=== PATIENT | male | born 1995 | race Caucasian/White ===

== ENCOUNTER 2018-07-06 19:45 | Emergency (ER) | payer BC, SELFPAY ==
[2018-07-06 19:57] VITALS: BP 159/87; PULSE 83; RESP 18; TEMP 36.6; O2SAT 97
[2018-07-06] MEDS: Normal Saline 1,000 ML 1000 ML IV (20:32)
[2018-07-06 20:42] LABS: Absolute Basophil Count 0.01 k/cumm (0.0-0.2); Absolute Eosinophil Count 0.05 k/cumm (0.0-0.7); Absolute Lymphocyte Count 1.55 k/cumm (1.2-3.4); Absolute Monocyte Count 0.65 k/cumm (0.11-0.7); Basophils % 0.2; Eosinophils % 1.2; HCT 43.3 % (40.0-50.0); Lymphocytes % 37.5; Mean Corp. HGB Concentration 34.6 g/dL (32.0-36.0); Mean Corpuscular Hemoglobin 27.5 pg (27.0-33.0); Mean Corpuscular Volume 79.3 fL (80-95); Mean Platelet Volume 9.8 fL (8.0-11.0); Monocytes % 15.7; Neutrophils % 45.4; Platelet Count 212 x1000/uL (130-400); RBC 5.46 m/cumm (4.50-6.00); White Blood Cell Count 4.13 k/cumm (4.4-10.8)
[2018-07-06 20:43] LABS: Absolute Neutrophil Count 1.88 k/cumm (1.2-6.7)
[2018-07-06 20:51] LABS: ALT 32 U/L (12-78); AST 27 U/L (15-37); Albumin 3.4 g/dL (3.4-5.0); Alkaline Phosphatase 77 U/L (46-116); BUN 14 mg/dL (7-18); Bilirubin, Total 0.3 mg/dL (0.2-1.0); CREATININE 0.74 mg/dL (0.70-1.30); Calcium 8.4 mg/dL (8.5-10.1); Chloride 103 mmol/L (98-107); Glucose 103 mg/dL (70-100); Lipase 67 U/L (73-393); Potassium 4.2 mmol/L (3.5-5.1); Sodium 138 mmol/L (136-145); Total Protein 7.2 g/dL (6.4-8.2)
--- NOTE | 2018-07-06 21:21 | W.ED.GENAD ---
Discharge Plan Disposition Patient Disposition: HOME Condition: Stable Discharge Details Chief Complaint: Nausea/Vomit/Diar Clinical Impression: Diarrhea Primary Care Provider: Beatrice More ED Provider: Abrahan Del Rosario Home Meds and New Rx's Prescriptions: Discontinued sulfamethoxazole-trimethoprim 1 TAB tablet 1 ea PO BID Qty: 20 RF: 0 Discharge Instructions Instructions: Acute Diarrhea (ED) Additional Instructions: He may continue to use [id number] Imodium just take as directed on packaging. Stay away from extremely sugary drinks but stay well-hydrated with plenty of water or half dilute Gatorade. If your symptoms continue over the next week please follow-up with your primary care provider for reassessment. Stand Alone Forms: Work Release Referrals: Beatrice More [Primary Care Provider] - (As needed for reassessment or if not improving over the next week) Discharge Data Discharge Date/Time-TO BE ENTERED AT DEPARTURE: 07/06/18 21:37 Medical Decision Making Patient presenting to the emergency department chief complaint of diarrhea for 4 days with intermittent fever. Patient denies any bloody or mucus noted with diarrhea and states mostly watery bowel movements. Patient denies any other sick contacts, denies recent antibiotic use, denies any pain or discomfort at this time. Patient does state some crampy abdominal pain just before bowel movement occurs. Physical exam is unremarkable with completely soft nontender abdomen normal active bowel sounds no other exam findings noted. I do not feel that CT imaging is required at this time given nonsurgical abdomen and otherwise reassuring assessment and review of vital signs. given patient stating persistent diarrhea do feel that checking labs is warranted. Pending labs patient given IV fluids. Patient labs were reviewed and show nondiagnostic findings with no worrisome leukocytosis of concern. Patient reassessed and remained stable. Patient was unable to provide stool specimen in the emergency department so given outpatient orders but more concern for viral etiology of diarrhea. Return precautions discussed. After discussion of diagnosis and plan of care patient has no further needs, questions, or concerns and states clear understanding to return to the emergency department for any worsening symptoms. HPI General Mode of arrival: ambulatory. Date/Time Provider Initiated Documentation: 07/06/18 20:11. Limitations to Documentation: no limitations. Information obtained by: patient and RN notes reviewed. History of Present Illness 22 year old M presents to the emergency department with the chief complaint of Diarrhea, fever, Quality is described as other (Denies pain), Patient started experiencing this day(s) (4) No exacerbating factors reported . Patient did receive the following treatments prior to arrival, other (1 dose of Imodium) Related Data Allergies Allergy/AdvReac Type Severity Reaction Status Date / Time house dust mite AdvReac Unverified 07/25/17 16:12 pine nut AdvReac Unverified 07/25/17 16:12 General Stated Complaint: Nausea/Vomit/Diar BHAVESH: 3 Review of Systems Constitutional Denies chills, Reports fever(s) and Denies poor appetite Cardiovascular Denies chest pain and Denies dyspnea Respiratory Denies cough and Denies dyspnea Gastrointestinal Reports as per HPI, Denies abdominal pain, Denies melena, Denies bloating, Denies hematochezia, Denies change in stool character, Denies constipation, Reports cramping (Before bowel movement), Reports diarrhea, Reports loose stools, Denies nausea and Denies vomiting Genitourinary Denies hematuria, Denies difficulty urinating, Denies urinary hesitancy, Denies urinary incontinence and Denies urinary urgency Integumentary/Breasts Denies rash [facility] Social History Smoking and Tabacco status: Never Exam Const General: cooperative Orientation: alert, awake and oriented x3 Resp Effort & Inspection: normal respiratory effort and able to speak in complete sentences Auscultation: clear to auscultation bilaterally Cardio Rate: regular rate Rhythm: regular rhythm Heart Sounds: S1 normal and S2 normal GI Inspection: normal to inspection Palpation: soft, no hepatosplenomegaly, not firm, no guarding, no masses, no pulsatile masses, not rigid, no splenomegaly and nontender Auscultation: normal bowel sounds Back/Spine/Pelvis Back: no CVA tenderness Neuro General: alert, awake, oriented x3, gait normal and moves all extremities Course Vital Signs Temperature 36.6 C 07/06/18 19:57 Pulse 83 07/06/18 19:57 Respiratory Rate 18 07/06/18 19:57 Blood Pressure 159/87 H 07/06/18 19:57 Pulse Oximetry 97 07/06/18 19:57 Temperature 36.6 C 07/06/18 19:57 Temperature Source Temporal Artery Scan 07/06/18 19:57 Pulse 83 07/06/18 19:57 Respiratory Rate 18 07/06/18 19:57 Respiratory Effort Non-Labored 07/06/18 19:59 Blood Pressure 159/87 H 07/06/18 19:57 Blood Pressure Position Sitting 07/06/18 19:57 Pulse Oximetry 97 07/06/18 19:57 Oxygen Delivery Method Room Air 07/06/18 19:57 Oxygen Flow Rate 0 07/06/18 19:57 Pain Level 0 07/06/18 19:57 Lab/Test Results Lab/Test Results: Laboratory Tests Range/Units 07/06/18 07/06/18 20:30 20:30 WBC (4.4-10.8) k/cumm 4.13 L RBC (4.50-6.00) m/cumm 5.46 Hgb (13.5-17.5) g/dL 15.0 Hct (40.0-50.0) % 43.3 MCV (80-95) fL 79.3 L MCH (27.0-33.0) pg 27.5 MCHC (32.0-36.0) g/dL 34.6 RDW (11.8-14.1) % 13.0 Plt Count (130-400) x1000/uL 212 MPV (8.0-11.0) fL 9.8 Immature Gran % 0.0 Neutrophils % 45.4 Lymphocytes % 37.5 Monocytes % 15.7 Eosinophils % 1.2 Basophils % 0.2 Absolute Neutrophils (1.2-6.7) k/cumm 1.88 Absolute Lymphocytes (1.2-3.4) k/cumm 1.55 Absolute Monocytes (0.11-0.7) k/cumm 0.65 Absolute Eosinophils (0.0-0.7) k/cumm 0.05 Absolute Basophils (0.0-0.2) k/cumm 0.01 Sodium (136-145) mmol/L 138 Potassium (3.5-5.1) mmol/L 4.2 Chloride (98-107) mmol/L 103 Carbon Dioxide (21.0-32.0) mmol/L 24.0 Anion Gap (3-11) mmol/L 11.0 BUN (7-18) mg/dL 14 Creatinine (0.70-1.30) mg/dL 0.74 Estimated GFR/1.73 m2 (mL/min/1.73m2) >= 60.00 Glucose (70-100) mg/dL 103 H Calcium (8.5-10.1) mg/dL 8.4 L Total Bilirubin (0.2-1.0) mg/dL 0.3 AST (15-37) U/L 27 ALT (12-78) U/L 32 Alkaline Phosphatase (46-116) U/L 77 Total Protein (6.4-8.2) g/dL 7.2 Albumin (3.4-5.0) g/dL 3.4 Lipase (73-393) U/L 67 L
--- NOTE | 2018-07-06 21:28 | ED.GENADUL_ITS ---
Discharge Plan Disposition Patient Disposition: HOME Condition: Stable Discharge Details Chief Complaint: Nausea/Vomit/Diar Clinical Impression: Diarrhea Primary Care Provider: Beatrice More ED Provider: Abrahan Del Rosario Home Meds and New Rx's Prescriptions: Discontinued sulfamethoxazole-trimethoprim 1 TAB tablet 1 ea PO BID Qty: 20 RF: 0 Discharge Instructions Instructions: Acute Diarrhea (ED) Additional Instructions: He may continue to use [id number] Imodium just take as directed on packaging. Stay away from extremely sugary drinks but stay well-hydrated with plenty of water or half dilute Gatorade. If your symptoms continue over the next week please follow-up with your primary care provider for reassessment. Stand Alone Forms: Work Release Referrals: Beatrice More [Primary Care Provider] - (As needed for reassessment or if not improving over the next week) Discharge Data Discharge Date/Time-TO BE ENTERED AT DEPARTURE: 07/06/18 21:37 Medical Decision Making Patient presenting to the emergency department chief complaint of diarrhea for 4 days with intermittent fever. Patient denies any bloody or mucus noted with diarrhea and states mostly watery bowel movements. Patient denies any other sick contacts, denies recent antibiotic use, denies any pain or discomfort at this time. Patient does state some crampy abdominal pain just before bowel movement occurs. Physical exam is unremarkable with completely soft nontender abdomen normal active bowel sounds no other exam findings noted. I do not feel that CT imaging is required at this time given nonsurgical abdomen and otherwise reassuring assessment and review of vital signs. given patient stating persist ent diarrhea do feel that checking labs is warranted. Pending labs patient given IV fluids. Patient labs were reviewed and show nondiagnostic findings with no worrisome leukocytosis of concern. Patient reassessed and remained stable. Patient was unable to provide stool specimen in the emergency department so given outpatient orders but more concern for viral etiology of diarrhea. Return precautions discussed. After discussion of diagnosis and plan of care patient has no further needs, questions, or concerns and states clear understanding to return to the emergency department for any worsening symptoms. HPI General Mode of arrival: ambulatory . Date/Time Provider Initiated Documentation: 07/06/18 20:11 . Limitations to Documentation: no limitations . Information obtained by: patient and RN notes reviewed . History of Present Illness 22 year old M presents to the emergency department with the chief complaint of Diarrhea, fever, Quality is described as other (Denies pain), Patient started experiencing this day(s) (4) No exacerbating factors reported . Patient did receive the following treatments prior to arrival, other (1 dose of Imodium) Related Data Allergies Allergy/AdvReac Type Severity Reaction Status Date / Time house dust mite AdvReac Unverified 07/25/17 16:12 pine nut AdvReac Unverified 07/25/17 16:12 General Stated Complaint: Nausea/Vomit/Diar BHAVESH: 3 Review of Systems Constitutional Denies chills, Reports fever(s) and Denies poor appetite Cardiovascular Denies chest pain and Denies dyspnea Respiratory Denies cough and Denies dyspnea Gastrointestinal Reports as per HPI, Denies abdominal pain, Denies melena, Denies bloating, Denies hematochezia, Denies change in stool character, Denies constipation, Reports cramping (Before bowel movement), Reports diarrhea, Reports loose stools, Denies nausea and Denies vomiting Genitourinary Denies hematuria, Denies difficulty urinating, Denies urinary hesitancy, Denies urinary incontinence and Denies urinary urgency Integumentary/Breasts Denies rash [facility] Social History Smoking and Tabacco status: Never Exam Const General: cooperative Orientation: alert, awake and oriented x3 Resp Effort & Inspection: normal respiratory effort and able to speak in complete sentences Auscultation: clear to auscultation bilaterally Cardio Rate: regular rate Rhythm: regular rhythm Heart Sounds: S1 normal and S2 normal GI Inspection: normal to inspection Palpation: soft, no hepatosplenomegaly, not firm, no guarding, no masses, no pulsatile masses, not rigid, no splenomegaly and nontender Auscultation: normal bowel sounds Back/Spine/Pelvis Back: no CVA tenderness Neuro General: alert, awake, oriented x3, gait normal and moves all extremities Course Vital Signs Temperature 36.6 C 07/06/18 19:57 Pulse 83 07/06/18 19:57 Respiratory Rate 18 07/06/18 19:57 Blood Pressure 159/87 H 07/06/18 19:57 Pulse Oximetry 97 07/06/18 19:57 Temperature 36.6 C 07/06/18 19:57 Temperature Source Temporal Artery Scan 07/06/18 19:57 Pulse 83 07/06/18 19:57 Respiratory Rate 18 07/06/18 19:57 Respiratory Effort Non-Labored 07/06/18 19:59 Blood Pressure 159/87 H 07/06/18 19:57 Blood Pressure Position Sitting 07/06/18 19:57 Pulse Oximetry 97 07/06/18 19:57 Oxygen Delivery Method Room Air 07/06/18 19:57 Oxygen Flow Rate 0 07/06/18 19:57 Pain Level 0 07/06/18 19:57 Lab/Test Results Lab/Test Results: Laboratory Tests Range/Units 07/06/18 07/06/18 20:30 20:30 WBC (4.4-10.8) k/cumm 4.13 L RBC (4.50-6.00) m/cumm 5.46 Hgb (13.5-17.5) g/dL 15.0 Hct (40.0-50.0) % 43.3 MCV (80-95) fL 79.3 L MCH (27.0-33.0) pg 27.5 MCHC (32.0-36.0) g/dL 34.6 RDW (11.8-14.1) % 13.0 Plt Count (130-400) x1000/uL 212 MPV (8.0-11.0) fL 9.8 Immature Gran % 0.0 Neutrophils % 45.4 Lymphocytes % 37.5 Monocytes % 15.7 Eosinophils % 1.2 Basophils % 0.2 Absolute Neutrophils (1.2-6.7) k/cumm 1.88 Absolute Lymphocytes (1.2-3.4) k/cumm 1.55 Absolute Monocytes (0.11-0.7) k/cumm 0.65 Absolute Eosinophils (0.0-0.7) k/cumm 0.05 Absolute Basophils (0.0-0.2) k/cumm 0.01 Sodium (136-145) mmol/L 138 Potassium (3.5-5.1) mmol/L 4.2 Chloride (98-107) mmol/L 103 Carbon Dioxide (21.0-32.0) mmol/L 24.0 Anion Gap (3-11) mmol/L 11.0 BUN (7-18) mg/dL 14 Creatinine (0.70-1.30) mg/dL 0.74 Estimated GFR/1.73 m2 (mL/min/1.73m2) >= 60.00 Glucose (70-100) mg/dL 103 H Calcium (8.5-10.1) mg/dL 8.4 L Total Bilirubin (0.2-1.0) mg/dL 0.3 AST (15-37) U/L 27 ALT (12-78) U/L 32 Alkaline Phosphatase (46-116) U/L 77 Total Protein (6.4-8.2) g/dL 7.2 Albumin (3.4-5.0) g/dL 3.4 Lipase (73-393) U/L 67 L
[2018-07-06 21:31] VITALS: BP 126/80; PULSE 82; RESP 16; TEMP 37; O2SAT 98
== END 2018-07-06 21:37 | disposition home or self-care (01) ==
PROVIDERS: Emergency Provider Nurse Practitioner Family; PCP Nurse Practitioner Family
DX: R19.7 Diarrhea, unspecified (principal); R50.9 Fever, unspecified
CPT/HCPCS: 36415; 80053; 83690; 96360; 99284; 85025; 99283

== ENCOUNTER 2018-11-17 16:32 | Outpatient (REF) | payer BC, SELFPAY ==
[2018-11-20 11:45] LABS: IgA 216 mg/dL (85-499); Interpretation SEE COMMENTS; Tissue Transglutaminase IgA <1.2 U/mL (<4.0)
== END 2018-11-17 16:52 ==
LOC: NCHCN 16:32
PROVIDERS: PCP Nurse Practitioner Family; Visit Provider Nurse Practitioner Family
DX: R19.7 Diarrhea, unspecified (principal)
CPT/HCPCS: 82784; 83516

== ENCOUNTER 2019-02-24 09:21 | Emergency (ER) | payer BC, SELFPAY ==
[2019-02-24 09:24] VITALS: BP 144/86; PULSE 125; RESP 20; TEMP 36.8; O2SAT 96
[2019-02-24 09:35] VITALS: TEMP 38.1
--- NOTE | 2019-02-24 09:36 | ED.GENADUL_ITS ---
Discharge Plan Disposition Patient Disposition: HOME Condition: Fair Discharge Details Chief Complaint: GenMedical Clinical Impression: Viral illness Primary Care Provider: Beatrice More ED Provider: So Dockery Home Meds and New Rx's Prescriptions: New oseltamivir [Tamiflu] 75 mg capsule 75 mg PO DAILY Qty: 10 RF: 0 Continued acetaminophen [Acetaminophen Extra Strength] 500 mg Tablet 500 mg PO PRN PRNRF: 0 Discharge Instructions Instructions: Viral Syndrome (ED) Additional Instructions: While your initial rapid testing for flu was negative, I am very concerned that you likely have influenza, more formal testing has been sent. Do not have these results for several days. Tamiflu prescription is attached, please take as prescribed for presumed flu. I have called in a prescription for Tamiflu for Sheree at [facility] to [facility] in [place] as directed by Dr. Polk as well. Please encourage hydration. Try cool showers or baths to help with your fever. Tylenol or Motrin. Take only as directed. Please follow-up with primary care in 1 week if not improved. If you develop inability to stay hydrated, increased pain, rash, shortness of breath or the new/worsening symptoms please seek care urgently once again. Wash hands frequently and try to avoid passing this along the others. Referrals: Beatrice More [Primary Care Provider] - Discharge Data Discharge Date/Time-TO BE ENTERED AT DEPARTURE: 02/24/19 11:54 Medical Decision Making Patient is an otherwise healthy 23 year old male, presenting with his signifacnt other who is 40 weeks gestation, with c/c of fever, body aches, malaise, JORGENSEN and mild cough. States that symptoms began suddenly 3 days ago and have persisted since that time. He states that the JORGENSEN tends to wax/wane with the fever. T max 104 this AM. He reports that his son had similar symptoms recently but was able to self resolve after a few days of rest. No recent travel. No recent abx. No neck pain, no rash. Denies known tick bite. On exam, he appears fatigued but non toxic. He is tachycardic at 125. Febrile at 39.4 with oral temp. Lungs clear, no nuchal rigidity, no rash, abdomen benign, tachycardic. With the rapid onset of symptoms, fever, cough, mailgias, I am very concerned for influenza, particularly with his significant other and potential risks to her and baby. Plan to hydrate, check baseline labs, rapid flu, tick born illness. He does not appear to be consisetn with neurologic infection. However, this was on the differential with the JORGENSEN and fever. It sounds like the fever is more driving the JORGENSEN as they seem to wax/wane together. Patient responding to hydration, HR is coming down. He has received Tylenol and Ibuprofen, continues to be febrile but reports feeling improved and sounds to be breaking fever as his chills have improved. Labs were reviewed. No leukocy tosis. Sodium is slightly low at 135, has received normal saline. Slight anion gap of 0.7, associated with acute illness but patient again has been receiving hydration most likely to correct. Bicarb is normal. AST and ALT are minimally elevated. I did discuss this with the patient advised that they should be rechecked with his primary care. Rapid influenza is negative. However, I remain quite concerned for flu, plan to treat as such with definitive testing from the state pending. Tick and Lyme panel also pending. I did contact the on-call dry goods inspector, Dr. Polk. He knows the patient's significant other well and is asked that I also cover her with Tamiflu. Tamiflu was called in at her request, she reported no allergies to this medication to her local pharmacy. Her prescriptions for preventative dosing while his will be for treatment dosing. Encourage hydration. He was given strict return precautions. Advise close follow-up with primary care. Advised that he is contagious with presumed viral illness, again concern for influenza. He will continue to increase the hydration and return with any new or worsening symptoms. All his questions and concerns were addressed HPI General Mode of arrival: ambulatory . Date/Time Provider Initiated Documentation: 02/24/19 09:35 . Limitations to Documentation: no limitations . Information obtained by: patient, family () and RN notes reviewed . History of Present Illness 23 year old M presents to the emergency department with the chief complaint of headache, N/V, fever, malaise, described as moderate, wi th intensity rated at 7. Quality is described as aching (generalized body aches, joint pain, headache), and is localized to the head. Patient started experiencing this day(s) (3) and it has been constant. Medication improves symptom(s), No exacerbating factors reported . Patient notes diaphoresis, fever/chills, headaches, loss of appetite, malaise and nausea/vomiting (vomited x 1); denies chest pain, cough, rash, shortness of breath, syncope and weakness. Patient did receive the following treatments prior to arrival, none Related Data Home Medications Medication Instructions Recorded Confirmed acetaminophen [Acetaminophen Extra 500 mg PO PRN PRN 02/24/19 02/24/19 Strength] oseltamivir [Tamiflu] 75 mg PO DAILY #10 cap 02/24/19 Previous Rx's Medication Instructions Recorded oseltamivir [Tamiflu] 75 mg PO DAILY #10 cap 02/24/19 Allergies Allergy/AdvReac Type Severity Reaction Status Date / Time house dust mite AdvReac Unverified 02/24/19 09:27 pine nut AdvReac Unverified 02/24/19 09:27 General Stated Complaint: GenMedical BHAVESH: 3 Review of Systems Constitutional Constitutional: Reports as per HPI, Reports chills, Reports fatigue, Reports fever(s), Reports headache(s) and Reports poor appetite Eyes Eyes: Reports as per HPI, Denies eye discharge and Denies irritation ENT Ears, Nose, Mouth, and Throat: Reports as per HPI and Reports headache(s) Cardiovascular Cardiovascular: Reports as per HPI, Denies chest pain, Denies chest pain at rest, Denies chest pain with activity, Denies dyspnea and Denies dyspnea on exertion Respiratory Respiratory: Reports as per HPI, Reports cough (mild), Denies hemoptysis, Denies excessive phlegm production, Denies dyspnea and Denies dyspnea on exertion Gastrointestinal Gastrointestinal: Reports as per HPI, Denies abdominal pain, Denies change in bowel habits, Reports nausea and Reports vomiting Integumentary/Breasts Skin/Breast: Reports as per HPI and Denies rash Neurologic Neurologic: Reports as per HPI and Reports headache(s) Endocrine Endocrine: Reports fatigue PFSH Surgical History Hx of appendectomy (Chronic) Social History Smoking/Tobacco Use Status: Never Alcohol Intake: former Drug use: Never Do you feel safe at home: Yes Do you feel safe in your relationship?: Yes Exam Const General: cooperative, healthy appearing, comfortable, no acute distress, well developed and well groomed Nutritional Appearance: average body habitus and well nourished Orientation: alert and awake [facility] Head: normal to inspection, normocephalic and atraumatic Ears: hearing grossly normal bilaterally, external ears normal and TM's normal bilaterally General nose exam: external nose normal and nares normal Face and sinus: normal facial exam, sinuses nontender and face symmetric Mouth: oral mucosae normal, lip normal, tongue normal, oropharynx normal and moist mucous membranes Teeth and gingiva: dentition normal Throat: posterior oropharynx normal, tonsils normal and uvula midline Eyes General: appearance normal, both eyes and all related structures Neck Neck: normal visual inspection, full ROM, no lymphadenopathy and no meningeal signs Resp Effort & Inspection: normal respiratory effort, able to speak in complete sentences and no respiratory distress Auscultation: clear to auscultation bilaterally, no rales, no rhonchi and no wheezes Cardio Rate: tachycardic Rhythm: regular rhythm Heart Sounds: S1 normal and S2 normal GI Inspection: normal to inspection Palpation: soft, no hepatosplenomegaly and nontender Percussion: normal to percussion Auscultation: normal bowel sounds Skin General skin exam: no rashes or lesions noted Neuro General: alert and awake Cognition: normal cognition Speech: speech normal Gait: normal gait Psych Appearance: grossly normal and well kempt Mental Status: mental status grossly normal Speech and Movement: speech and movement normal Course Vital Signs Vital signs: Vital Signs Temperature 36.8 C 02/24/19 09:24 Pulse 125 H 02/24/19 09:24 Respiratory Rate 20 02/24/19 09:24 Blood Pressure 144/86 H 02/24/19 09:24 Pulse Oximetry 96 02/24/19 09:24 Temperature 38.1 C H 02/24/19 09:35 Temperature Source Skin 02/24/19 09:24 Pulse 125 H 02/24/19 09:24 Respiratory Rate 20 02/24/19 09:24 Respiratory Effort Non-Labored 02/24/19 09:27 Blood Pressure 144/86 H 02/24/19 09:24 Blood Pressure Position Sitting 02/24/19 09:24 Pulse Oximetry 96 02/24/19 09:24 Oxygen Delivery Method Room Air 02/24/19 09:24 Oxygen Flow Rate 0 02/24/19 09:24 Lab/Test Results Lab/Test Results: 02/24/19 09:32 Nasopharynx Influenza Types A,B Antigen - Pending
[2019-02-24 10:11] VITALS: TEMP 39.4
[2019-02-24] MEDS: Ibuprofen 600 MG TAB PO (10:11)
[2019-02-24] MEDS: Acetaminophen 500 MG TAB 1000 MG PO (10:11)
[2019-02-24] MEDS: Lactated Ringers 1,000 ML 1000 ML IV (10:12)
[2019-02-24 10:14] VITALS: BP 132/78; PULSE 113; RESP 22; O2SAT 96
[2019-02-24 10:22] LABS: Abs Immature Grans 0.02 k/cumm (0.0-0.09); Absolute Lymphocyte Count 0.42 k/cumm (1.2-3.4); Absolute Neutrophil Count 5.75 k/cumm (1.2-6.7); HCT 45.4 % (40.0-50.0); HGB 15.8 g/dL (13.5-17.5); Immature Grans % 0.3; Lymphocytes % 6.3; Mean Corp. HGB Concentration 34.8 g/dL (32.0-36.0); Mean Corpuscular Hemoglobin 27.4 pg (27.0-33.0); Mean Corpuscular Volume 78.7 fL (80-95); Mean Platelet Volume 9.4 fL (8.0-11.0); Monocytes % 7.5; Neutrophils % 85.9; Platelet Count 210 x1000/uL (130-400); RBC 5.77 m/cumm (4.50-6.00); RBC Distribution Width 13.1 % (11.8-14.1); White Blood Cell Count 6.69 k/cumm (4.4-10.8)
[2019-02-24 10:34] LABS: ALT 71 U/L (16-63); AST 38 U/L (15-37); Albumin 4.1 g/dL (3.4-5.0); Alkaline Phosphatase 109 U/L (46-116); Anion Gap 12.7 mmol/L (3-11); BUN 11 mg/dL (7-18); Bilirubin, Total 0.3 mg/dL (0.2-1.0); CO2 24.3 mmol/L (21.0-32.0); CREATININE 1.07 mg/dL (0.70-1.30); Calcium 8.6 mg/dL (8.5-10.1); Chloride 98 mmol/L (98-107); Glucose 141 mg/dL (70-100); Potassium 3.8 mmol/L (3.5-5.1); Sodium 135 mmol/L (136-145)
[2019-02-24 11:31] VITALS: BP 130/67; PULSE 108; RESP 22; TEMP 39.4; O2SAT 96
[2019-02-26 11:55] LABS: Influenza A RNA Result Negative (Negative); Influenza B RNA Result Negative (Negative); RSV RNA Result Negative (Negative)
[2019-02-26 12:02] LABS: Lyme Ab w Rflx to Lyme Confirm Negative
[2019-02-27 22:36] LABS: Anaplasma phagocytophilum Negative (Negative); B. miyamotoi PCR Negative (Negative); Babesia divergens/MO-1 Negative (Negative); Babesia duncani Negative (Negative); Babesia microti Negative (Negative); Ehrlichia chaffeensis Negative (Negative); Ehrlichia ewingii/canis Negative (Negative); Ehrlichia muris eauclairensis Negative (Negative)
== END 2019-02-24 11:54 | disposition home or self-care (01) ==
PROVIDERS: Emergency Provider Physician Assistant; PCP Nurse Practitioner Family
DX: B34.9 Viral infection, unspecified (principal); R00.0 Tachycardia, unspecified
CPT/HCPCS: 80053; 87449; 87631; 87798; 96360; 99283; 85025; 86618

== ENCOUNTER 2019-03-06 19:07 | Outpatient (REF) | payer BC, SELFPAY ==
[2019-03-08 12:51] LABS: Chlamydia Result Negative; GC Result Negative; Specimen Description URINE
== END 2019-03-06 19:27 ==
LOC: NCHCN 19:07
PROVIDERS: PCP Nurse Practitioner Family; Visit Provider Nurse Practitioner Family
DX: N50.811 Right testicular pain (principal); Z11.3 Encounter for screening for infections with a predominantly sexual mode of transmission
CPT/HCPCS: 87491; 87591

== ENCOUNTER → 2021-09-11 00:37 | Outpatient (CLI) | payer BC, SELFPAY ==
--- NOTE | 2021-09-11 | DI.RAD_ITS ---
Exam(s) XR LUMBAR SPINE COMPLETE EXAM: XR LUMBAR SPINE COMPLETE CLINICAL HISTORY: LOW BACK PAIN ACUTE, M54.59. TECHNIQUE: 2D digital imaging was performed. Five views. COMPARISON: No exams were available for comparison FINDINGS: BONES: No fracture or destructive lesion. Vertebral bodies are unremarkable. No facet hypertrophy lobo ntified. DISKS: Intervertebral disc spaces are maintained. ALIGNMENT: Lumbar spinal alignment is within normal limits. SOFT TISSUE: Normal. SI joints unremarkable. IMPRESSION: Unremarkable radiographs of the lumbar spine. DATA REPOSITORY: RADIATION DOSE DELIVERED:
== END ==
PROVIDERS: PCP Nurse Practitioner Family; Visit Provider Nurse Practitioner Family
DX: M54.59 Other low back pain (principal)
CPT/HCPCS: 72110

== ENCOUNTER 2023-08-12 13:11 | Outpatient (REF) | payer BC, SELFPAY ==
[2023-08-12 18:55] LABS: Abs Immature Grans 0.02 10^3/uL (0.0-0.06); Absolute Basophil Count 0.03 10^3/uL (0.0-0.2); Absolute Eosinophil Count 0.16 10^3/uL (0.0-0.7); Absolute Lymphocyte Count 3.27 10^3/uL (1.2-3.4); Basophils % 0.3; Eosinophils % 1.8; HCT 47.6 % (40.0-50.0); HGB 15.7 g/dL (13.5-17.5); Immature Grans % 0.2; Lymphocytes % 37.2; MCH 27.1 pg (27.0-33.0); MCV 82 fL (80-95); MPV 9.7 fL (8.0-11.0); Neutrophils % 52.5; Platelet Count 294 10^3/uL (130-400); RDW 12.4 % (11.8-14.1); RDW-SD 36.9 fL; WBC 8.78 10^3/uL (4.4-10.8)
== END 2023-08-12 13:12 | disposition home or self-care (01) ==
LOC: NCHCN 13:11
PROVIDERS: Visit Provider Nurse Practitioner Family
DX: R59.0 Localized enlarged lymph nodes (principal)
CPT/HCPCS: 85025